=== PATIENT | female | born 1955 | race Caucasian/White ===

== ENCOUNTER 2017-02-08 22:06 | Inpatient (IN) | payer OTHER ==
[2017-02-08] MEDS ORDERED: Acetaminophen 500 MG TAB PO ONE (22:45)
[2017-02-08 23:02] LABS: % BASOPHILS 2.6 % (0.0-2.0); % EOSINOPHILS 0.8 % (0.0-5.0); % LYMPHOCYTES 11.8 % (20.0-50.0); % MONOCYTES 9.7 % (2.0-10.0); % NEUTROPHILS 75.1 % (40.0-80.0); HEMATOCRIT 50.7 % (41.0-60); HEMOGLOBIN 16.9 gm/dL (12-16); MEAN CORPUSCULAR HEMOGLOBIN 30.1 pg (27.0-31.0); MEAN CORPUSCULAR HGB CONC 33.4 pg (28.0-36.0); MEAN PLATELET VOLUME 10.4 fl; NEUTROPHILE ABSOLUTE 10.8 Th/cmm (1.8-8.0); PLATELET COUNT 397 Th/cmm (150-400); RED BLOOD COUNT 5.64 Mil/cmm (3.80-5.10); RED CELL DISTRIBUTION WIDTH 14.9 % (11.5-20.0)
[2017-02-08 23:04] LABS: WHITE BLOOD COUNT 14.4 Th/cmm (4.8-10.8)
[2017-02-08 23:12] LABS: ANION GAP 18.7 (7.0-16.0); BUN/CREATININE RATIO 45.7; CALCIUM SERUM 9.4 mg/dL (8.6-10.3); CREATININE - SERUM 1.4 mg/dL (0.6-1.2); INR 1.14 (0.5-1.4); MAGNESIUM 2.6 mg/dL (1.9-2.7); POTASSIUM SERUM 3.7 mEq/L (3.5-5.1)
[2017-02-08] MEDS ORDERED: Sodium Chloride 0.9% 1,000 ML IV ONE ×2 (23:30)
[2017-02-08] MEDS ORDERED: Sodium Chloride 0.9% 1,000 ML IV SCH (23:30)
[2017-02-08] MEDS ORDERED: Acetaminophen 500 MG TAB ONE (23:34)
--- NOTE | 2017-02-09 00:24 | ED Physician Chart ---
ED Chief Complaint/HPI - Patient Information Date Seen:: 02/09/17 (n) Time Seen:: 00:16 Chief Complaint:: sob History of Present Illness:: palpitation Allergies:: Allergies Allergy/AdvReac Type Severity Reaction Status Date / Time codeine Allergy Verified 02/08/17 22:08 Vitals:: Vital Signs - 8 hr 02/08/17 22:08 Temp 98.5 F HR 120 RR 18 BP 125/77 O2 Sat % 98 Historian:: Patient Family MD/PCP:: negative Family Medical History - Family Member Mother Ethnicity: Non- ED Labs/Radiology/EKG Results - Lab Results Results: Laboratory Tests 02/08/17 02/08/17 02/08/17 22:50 22:50 22:50 WBC 14.4 H RBC 5.64 H Hgb 16.9 Hct 50.7 MCV 90.0 MCH 30.1 MCHC Differential 33.4 RDW 14.9 Plt Count 397 MPV 10.4 Neutrophils % 75.1 Lymphocytes % 11.8 L Monocytes % 9.7 Eosinophils % 0.8 Basophils % 2.6 H PT 12.0 H INR 1.14 Sodium 132 L Potassium 3.7 Chloride 98 Carbon Dioxide 19.0 L Anion Gap 18.7 H BUN 64 H Creatinine 1.4 H Est GFR ( Amer) 49.2 Est GFR (Non-Af Amer) 40.6 BUN/Creatinine Ratio 45.7 Glucose 132 H Whole Bld Lactic Acid Calcium 9.4 Magnesium 2.6 02/08/17 22:50 WBC RBC Hgb Hct MCV MCH MCHC Differential RDW Plt Count MPV Neutrophils % Lymphocytes % Monocytes % Eosinophils % Basophils % PT INR Sodium Potassium Chloride Carbon Dioxide Anion Gap BUN Creatinine Est GFR ( Amer) Est GFR (Non-Af Amer) BUN/Creatinine Ratio Glucose Whole Bld Lactic Acid 4.07 H* Calcium Magnesium ED Septic Shock - <6hrs of presentation: Vital Signs: Vital Signs - 8 hr 02/08/17 22:08 Temp 98.5 F HR 120 RR 18 BP 125/77 O2 Sat % 98
[2017-02-09] MEDS ORDERED: Levofloxacin 500mg/100mL 500 MG/100 ML BAG IV ONE ×2 (00:38→01:05)
[2017-02-09] MEDS ORDERED: Pantoprazole 40 mg EC Tab PO STA (00:41)
[2017-02-09] MEDS ORDERED: Pantoprazole 40 mg EC Tab PO ONE (01:14)
[2017-02-09] MEDS ORDERED: D5-0.45NS 1,000 ML IV SCH (01:38)
[2017-02-09 01:42] LABS: CREATINE KINASE MB 13.4 ng/mL (0.6-6.3)
[2017-02-09 02:51] VITALS: BP 164/76
[2017-02-09] MEDS ORDERED: Ipratropium Neb 0.5 mg/2.5 mL UD IH PRN (07:44)
[2017-02-09] MEDS ORDERED: Albuterol Nebulizer 2.5mg/3mL HHN PRN (07:44)
[2017-02-09] MEDS ORDERED: guaiFENesin 200 MG/10 ML UDC PO PRN (07:44)
--- NOTE | 2017-02-09 08:07 | Diagnostic Imaging Report ---
Portable chest x-ray Time: 320 History: Pneumonia Allowing for portable technique the heart size is normal. No focal pulmonary parenchymal processes. No hilar or mediastinal abnormalities. Impression: No acute abnormalities.
[2017-02-09] MEDS: cefTRIAXone 1 GM in Sodium Chloride 0.9% 50 ML IV SCH (09:40)
[2017-02-09] MEDS: Pantoprazole 40 mg EC Tab PO SCH (09:42)
--- NOTE | 2017-02-09 14:52 | History and Physical ---
History of Present Illness - HPI Chief Complaint: S/P FALL HPI: This is a 61 year old female who is admitted to the ICU unit. According to patient she lives home alone and she was in her mobile home restroom where she fall and could not get up, she states that she was on the floor for about 8 days and the [employer] manager of the mobile home called ambulance. Patient denies any chest pain, fevers, chills. Patient does have multiple decubitus wound on her buttock and perianal area. Upon examination patient is awake, alert, matson catheter in place noted to be dark devon in color. She denies any further medical history, she states that she just has HTN. Patient states that a few years back she was diagnosed with hodgkins lymphoma but her doctors confirmed that she did not have it. Vital Signs: Last Vital Signs Temp 97.8 F 02/09/17 12:00 Pulse 95 02/09/17 14:14 Resp 20 02/09/17 14:14 BP 187/70 02/09/17 14:14 Pulse Ox 98 02/09/17 14:14 Past Medical History Cardiovascular: Report: HTN Pulmonary: Report: No Pertinent Hx PATTERN DEVELOPER: Report: No Pertinent Hx GI: Report: No Pertinent Hx Psych: Report: No Pertinent Hx Musculoskeletal: Report: No Pertinent Hx Rheumatologic: Report: No pertinent Hx Infectious Disease: Report: No Pertinent Hx Renal/: Report: No Pertinent Hx Dermatology: Report: No Pertinent Hx - Past Surgical History Past Surgical History: No pertinent Hx Family Medical History - Family Member Mother History Unknown: Yes (noncontributory) Ethnicity: Non- Living Status: Social History Smoke: No Alcohol: None Drugs: None Lives: Alone Domestic Violence: Negative - Medications Home Medications: Home Medication Medication Instructions Recorded Type Unobtainable [Unobtainable] 02/08/17 History - Allergies Allergies/Adverse Reactions: Allergies Allergy/AdvReac Type Severity Reaction Status Date / Time codeine Allergy Verified 02/08/17 22:08 Review of Systems - Review of Systems Constitutional: Report: Weakness Eyes: Report: No Significant ENT: Report: No Significant Respiratory: Report: No Significant Cardiovascular: Report: No Significant Gastrointestinal: Report: No Significant Genitourinary: Report: No Significant Musculoskeletal: Report: No Significant Skin: Report: Other (multiple decubitus wounds) Neurological: Report: Weakness Physical Exam - Physical Exam HEENT: Report: Ears Nose Throat within normal limits Neck: Report: Within normal limits Cardiovascular Systems: Report: +s1/s2 noted Respiratory: Report: Breath Sounds are within normal limits Abdomen: Report: Non-tender to palpation Back: Report: Sacral Wound is noted with visible discharge. Extremities: Report: Non-tender to palpation. Skin: Report: Color of skin is within normal limits, Warm, Dry Neuro/Psych: Report: Mood affect is within normal limits, A+Ox3 - Lab Results All Lab Results last 24 hours: Laboratory Last Values WBC 14.4 Th/cmm (4.8-10.8) H 02/08/17 22:50 RBC 5.64 Mil/cmm (3.80-5.10) H 02/08/17 22:50 Hgb 16.9 gm/dL (12-16) 02/08/17 22:50 Hct 50.7 % (41.0-60) 02/08/17 22:50 MCV 90.0 fl (81-100) 02/08/17 22:50 MCH 30.1 pg (27.0-31.0) 02/08/17 22:50 MCHC Differential 33.4 pg (28.0-36.0) 02/08/17 22:50 RDW 14.9 % (11.5-20.0) 02/08/17 22:50 Plt Count 397 Th/cmm (150-400) 02/08/17 22:50 MPV 10.4 fl 02/08/17 22:50 Neutrophils % 75.1 % (40.0-80.0) 02/08/17 22:50 Lymphocytes % 11.8 % (20.0-50.0) L 02/08/17 22:50 Monocytes % 9.7 % (2.0-10.0) 02/08/17 22:50 Eosinophils % 0.8 % (0.0-5.0) 02/08/17 22:50 Basophils % 2.6 % (0.0-2.0) H 02/08/17 22:50 PT 12.0 SECONDS (9.5-11.5) H 02/08/17 22:50 INR 1.14 (0.5-1.4) 02/08/17 22:50 Sodium 132 mEq/L (136-145) L 02/08/17 22:50 Potassium 3.7 mEq/L (3.5-5.1) 02/08/17 22:50 Chloride 98 mEq/L (98-107) 02/08/17 22:50 Carbon Dioxide 19.0 mEq/L (21.0-31.0) L 02/08/17 22:50 Anion Gap 18.7 (7.0-16.0) H 02/08/17 22:50 BUN 64 mg/dL (7-25) H 02/08/17 22:50 Creatinine 1.4 mg/dL (0.6-1.2) H 02/08/17 22:50 Est GFR ( Amer) 49.2 ml/min (>90) 02/08/17 22:50 Est GFR (Non-Af Amer) 40.6 ml/min 02/08/17 22:50 BUN/Creatinine Ratio 45.7 02/08/17 22:50 Glucose 132 mg/dL (70-105) H 02/08/17 22:50 Whole Bld Lactic Acid 2.12 mmol/L (0.60-1.99) H* 02/09/17 00:55 Uric Acid 10.9 mg/dL (2.3-6.6) H 02/09/17 04:24 Calcium 9.4 mg/dL (8.6-10.3) 02/08/17 22:50 Magnesium 2.6 mg/dL (1.9-2.7) 02/08/17 22:50 Creatine Kinase 339 U/L (30-223) H 02/08/17 22:50 CK-MB (CK-2) 13.4 ng/mL (0.6-6.3) H 02/08/17 22:50 C-Reactive Protein 6.4 mg/dL (0.0-0.9) H 02/08/17 22:50 Laboratory Results - last 24 hr 02/09/17 04:24 Uric Acid 10.9 H - Assessment Assessment: SEPSIS HTN MULTIPLE DECUBITUS WOUNDS OBESITY LACTIC ACIDOSIS ACUTE RENAL INSUFFICIENCY - Plan Plan: WE NEED TO OBTAIN A URINALYSIS, URINE CULTURE IS SENT OUT ALREADY. CONTINUE IVF FOR HYDRATION NEPHRO/CARDIO CONSULT SPECIALTY FINISHING UTILITY PERSON TO ASSESS PATIENT LIVING CONDITION WOUND CARE IV ANTIBIOTICS WE WILL MONITOR BUN/CREA AND ELECTROLYTE LEVELS LIPID/HGBA1C LEVEL IN AM
[2017-02-09 15:20] LABS: CHOLESTEROL 146 mg/dL (<200); TRIGLYCERIDES 187 mg/dL (<150)
[2017-02-09 17:58] LABS: URINE BILIRUBIN NEGATIVE (NEGATIVE); URINE BLOOD MODERATE (NEGATIVE); URINE GLUCOSE (UA) NEGATIVE (NEGATIVE); URINE KETONE NEGATIVE (NEGATIVE); URINE PROTEIN NEGATIVE (NEGATIVE)
[2017-02-09 18:05] LABS: URINE COLOR YELLOW
[2017-02-09 18:06] LABS: URINE AMORPHOUS SEDIMENT MODERATE URATES (NONE SEEN); URINE BACTERIA 1+ /hpf (NONE SEEN); URINE EPITHELIAL CELLS MODERATE /lpf (FEW); URINE RBC 25-50 /hpf (0-5)
[2017-02-09] MEDS: D5-0.9%NS 1,000 ML IV SCH (21:32)
--- NOTE | 2017-02-10 01:49 | Consultation ---
DATE OF CONSULTATION: 02/09/2017 ATTENDING PHYSICIAN: Ramón Gil M.D. CRIME PREVENTION POLICE OFFICER: Jorje Lam M.D. REASON FOR CONSULTATION: Worsening kidney function, electrolyte imbalance, and fluid management. HISTORY OF PRESENT ILLNESS: This is a 61-year-old female with no past medical history, who was brought in because of sudden weakness of bilateral lower extremities. One week prior to admission, the patient suddenly experienced weakness involving bilateral lower extremities. She lost her strength. She gradually lied down on the floor. She states that she hit her head. There was no loss of consciousness. She has been awake all the time. A few hours prior to admission, a neighbor noted that her mails have not been picked up, hence started to pile up. Paramedics were then notified, and she was found on the floor. She was brought to the Emergency Room. She was in atrial fibrillation upon arrival with heart rate of 117. White count was 14.4 and the lactic acid of 4.7. CO2 of 19. She has no history of kidney failure in the past. She came in now with a BUN/creatinine of 64/1.4. She had no history of diarrhea, nausea and vomiting, headaches, or palpitations. She admitted to being thirsty. CURRENT MEDICATIONS: She is currently on acetaminophen, albuterol, Rocephin, clonidine, Robitussin, ipratropium, Zofran, pantoprazole, vancomycin, and zolpidem. ALLERGIES: ALLERGIC TO CODEINE. SOCIAL HISTORY: Denied any history of alcohol or tobacco use. FAMILY HISTORY: Noncontributory to her present illness. REVIEW OF SYSTEMS: CONSTITUTIONAL: She did complain of weakness involving her lower extremities. She had no fever and no chills. Appetite had been fair. HEENT: No mention of headaches. She did admit of dizziness and lightheadedness. CARDIORESPIRATORY: No shortness of breath, chest pain, palpitations, diaphoresis, nor cough. She arrived at Emergency Room in atrial fibrillation. GASTROINTESTINAL: She had no nausea or vomiting, abdominal pain or cramping, hematemesis, melena, hematochezia, nor diarrhea. ENDOCRINE: No history of diabetes, thyroid abnormalities, nor dyslipidemia. MUSCULOSKELETAL: Denied any arthralgias. GENITOURINARY: No history of kidney failure in the past. Denies any dysuria or hematuria. No retention. NEUROPSYCH: No syncopal episode or seizure activity. PHYSICAL EXAMINATION: GENERAL: The patient is alert, verbal, not in any distress. VITAL SIGNS: Her blood pressure now is 155/72, pulse 106, and temperature is 98 degrees. SKIN: Poor turgor, warm, no rash, no jaundice appreciated. HEENT: Head is normocephalic and atraumatic. Eyes: Extraocular muscles intact. Pupils are equal, round, and reactive to light and accommodate. Anicteric sclerae. Chama conjunctivae. Nose, midline nasal septum. Mouth: Dry mucosa with adequate dentition. NECK: Supple. No adenopathy. No thyromegaly. No bruits. Trachea palpated in the midline. CHEST AND CVS: S1 and S2, but no rub, murmur, nor gallop appreciated. Point of maximal impulse fifth intercostal space, left midclavicular line. No abdominal or femoral bruits appreciated. LUNGS: Equal expansion. No use of accessory muscles. No supraclavicular retractions. Decreased breath sounds, but no rhonchi nor wheezes appreciated. BREASTS: Pendulous, symmetrical, without any discharge. ABDOMEN: Obese, soft, positive for bowel sounds. No bruits either diastolic or systolic. RECTAL: The patient refused. GENITOURINARY: Normal appearing female genitalia with indwelling Fuentes catheter. MUSCULOSKELETAL: No effusions present in her joints with adequate range of motion. EXTREMITIES: No evidence of any edema, cyanosis, nor clubbing with palpable femoral, popliteal, and dorsalis pedis pulses. NEUROLOGIC: The patient is alert, verbal. Motor: Upper extremity 5/5. Lower extremities about 4/5. Sensory are intact. LABORATORY DATA: Revealed white count 14.4, hemoglobin 16.9, hematocrit 50.7, and platelets 397,000, polys 75.1%. Sodium 132, potassium 3.2, chloride 98, bicarbonate 19, BUN 64, creatinine 1.4, and glucose 132. Lactic acid 2.12, uric acid 10.9. CPK 339. CRP 6.4. Chest x-ray showed no acute disease. IMPRESSION: 1. 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 The patient's acute kidney injury is secondary to prerenal azotemia. She was not able to replenish fluid losses, both sensible and insensible because she had been lying on the floor for almost a week. She was able to obtain small amount of fluids as well as snacks. Physical exam revealed poor skin turgor with dry oral mucosa. Her prerenal azotemia eventually progressed to acute tubular injury. She also has overwhelming sepsis. Possibility of a urinary tract infection should be considered and this could lead to development of acute interstitial nephritis. The patient was also found lying on the floor for almost 1 week. CPK was not impressive at only 339. So, we also need to consider the possibility of rhabdomyolysis, but I doubt this because her electrolytes are not suggestive of this. 2. Sudden weakness of bilateral lower extremity, etiology possibly due to sepsis. 3. New onset atrial fibrillation, now in sinus rhythm. 4. Elevated lactic acid, possibility again sepsis is the cause. The patient's blood pressure has always been stable, so I doubt any decrease in circulation. 5. Leukocytosis likely due to sepsis, but possibility of leukemoid reaction should also be considered. 6. Anion gap acidosis based on delta-delta. 7. Hyponatremia due to increased sodium loss as compared to free water loss. PLAN: 1. Follow up with . 2. Urine sodium, eosinophils, and creatinine. 3. Renal ultrasound. 4. Urine myoglobin. 5. Continue with IV hydration. 6. Follow up electrolytes as well as CBC and urinalysis. 7. CT scan of the head as well as lumbosacral spine if the patient does not show any improvement with physical therapy. [facility]# [id number]
[2017-02-10] MEDS: NIFEdipine 30 mg ER Tab PO SCH ×2 (03:22→08:10)
[2017-02-10 05:10] LABS: MEAN CELL VOLUME 90.4 fl (81-100); MEAN CORPUSCULAR HEMOGLOBIN 31.1 pg (27.0-31.0); MEAN CORPUSCULAR HGB CONC 34.4 pg (28.0-36.0); MEAN PLATELET VOLUME 10.2 fl; RED BLOOD COUNT 3.84 Mil/cmm (3.80-5.10); RED CELL DISTRIBUTION WIDTH 15.2 % (11.5-20.0)
[2017-02-10 05:15] LABS: ALKALINE PHOSPHATASE 45 U/L (34-104); ANION GAP 8.7 (7.0-16.0); BILIRUBIN,TOTAL 0.9 mg/dL (0.3-1.0); BUN - UREA NITROGEN 39 mg/dL (7-25); CALCIUM SERUM 7.6 mg/dL (8.6-10.3); CARBON DIOXIDE 20.4 mEq/L (21.0-31.0); CHLORIDE 109 mEq/L (98-107); GLUCOSE 136 mg/dL (70-105); HEMATOCRIT 34.8 % (41.0-60); HEMOGLOBIN 11.9 gm/dL (12-16); PHOSPHOROUS 2.7 mg/dL (2.5-5.0); PLATELET COUNT 236 Th/cmm (150-400); POTASSIUM SERUM 3.1 mEq/L (3.5-5.1); SGOT 24 U/L (13-39); SGPT/ALT 42 U/L (7-52); SODIUM SERUM 135 mEq/L (136-145); WHITE BLOOD COUNT 7.1 Th/cmm (4.8-10.8)
[2017-02-10 05:31] LABS: BNP 70.4 pg/mL (5.0-100.0)
[2017-02-10 05:46] LABS: EOSINOPHIL 3 % (0-5); NEUTROPHILS 48 % (40-80); TOTAL CELLS COUNTED 100
[2017-02-10 05:47] LABS: TSH 3.78 uIU/ml (0.34-5.60)
[2017-02-10] MEDS: D5-0.9%NS 1,000 ML IV SCH (07:25)
[2017-02-10] MEDS: Pantoprazole 40 mg EC Tab PO SCH (08:10)
[2017-02-10] MEDS: cefTRIAXone 1 GM in Sodium Chloride 0.9% 50 ML IV SCH (08:10)
[2017-02-10] MEDS ORDERED: Potassium Chloride 20 mEq ER Tab PO ONE (09:00)
[2017-02-10] MEDS ORDERED: NYSTATIN 100000 UNITS/GM POWD TP SCH (09:00)
--- NOTE | 2017-02-10 09:04 | Diagnostic Imaging Report ---
Portable chest x-ray History: Cough Allowing for portable technique the heart size is normal. No focal pulmonary parenchymal processes. No hilar or mediastinal abnormalities. Impression: No acute abnormalities.
--- NOTE | 2017-02-10 12:01 | Diagnostic Imaging Report ---
Exam: Ultrasound examination deep venous circulation lower extremities. HISTORY: DVT Findings: Real-time ultrasound exam of the lower extremities performed multiple planes utilizing color Doppler technique. The study demonstrates normal compressibility and augmentation of deep venous system throughout. IMPRESSION: No evidence of deep venous thrombosis lower extremities bilaterally.
--- NOTE | 2017-02-10 12:40 | Diagnostic Imaging Report ---
Exam: Renal ultrasound. HISTORY: Acute renal failure. Findings: Real-time ultrasound summation kidneys performed multiple planes. The study demonstrates no evidence of obstructive uropathy or nephrolithiasis. The right kidney measures 11.6 x 5.6 x 5.8 cm. Left kidney measures 11.0 x 6.5 x 6.2 cm. The urinary bladder contains 1.4 cm hypoechoic structure in the most dependent portion of the urinary bladder which might represent debris, neoplastic component cannot be excluded the right visualization of CT examination of the pelvis is recommended. IMPRESSION: No evidence of obstructive uropathy or nephrolithiasis. Hypoechoic 1.47 m structure the base of the urinary bladder floor. Clinical correlation CT examination might be helpful.
[2017-02-10] MEDS ORDERED: D5-0.9%NS 1,000 ML IV SCH (13:23)
--- NOTE | 2017-02-10 13:36 | Internal Medicine Prog Note ---
Internal Medicine Subjective - Subjective Service Date: 02/10/17 Patient seen and examined:: with staff Patient is:: awake Per staff patient has:: tolerating meds Internal Medicine Objective - Results Result Diagrams: 02/10/17 04:30 02/10/17 04:30 Recent Labs: Laboratory Last Values WBC 7.1 Th/cmm (4.8-10.8) D 02/10/17 04:30 RBC 3.84 Mil/cmm (3.80-5.10) 02/10/17 04:30 Hgb 11.9 gm/dL (12-16) L D 02/10/17 04:30 Hct 34.8 % (41.0-60) L D 02/10/17 04:30 MCV 90.4 fl (81-100) 02/10/17 04:30 MCH 31.1 pg (27.0-31.0) H 02/10/17 04:30 MCHC Differential 34.4 pg (28.0-36.0) 02/10/17 04:30 RDW 15.2 % (11.5-20.0) 02/10/17 04:30 Plt Count 236 Th/cmm (150-400) D 02/10/17 04:30 MPV 10.2 fl 02/10/17 04:30 Neutrophils % 75.1 % (40.0-80.0) 02/08/17 22:50 Lymphocytes % 11.8 % (20.0-50.0) L 02/08/17 22:50 Monocytes % 9.7 % (2.0-10.0) 02/08/17 22:50 Eosinophils % 0.8 % (0.0-5.0) 02/08/17 22:50 Basophils % 2.6 % (0.0-2.0) H 02/08/17 22:50 Neutrophils (Manual) 48 % (40-80) 02/10/17 04:30 Lymphocytes 35 % (20-50) 02/10/17 04:30 Monocytes 14 % (2-10) H 02/10/17 04:30 Eosinophils 3 % (0-5) 02/10/17 04:30 Eos Smear Source URINE 02/09/17 16:10 Eos Smear Total Cells NONE SEEN (NONE SEEN) 02/09/17 16:10 PT 12.0 SECONDS (9.5-11.5) H 02/08/17 22:50 INR 1.14 (0.5-1.4) 02/08/17 22:50 Sodium 135 mEq/L (136-145) L 02/10/17 04:30 Potassium 3.1 mEq/L (3.5-5.1) L 02/10/17 04:30 Chloride 109 mEq/L (98-107) H 02/10/17 04:30 Carbon Dioxide 20.4 mEq/L (21.0-31.0) L 02/10/17 04:30 Anion Gap 8.7 (7.0-16.0) 02/10/17 04:30 BUN 39 mg/dL (7-25) H 02/10/17 04:30 Creatinine 1.0 mg/dL (0.6-1.2) 02/10/17 04:30 Est GFR ( Amer) > 60.0 ml/min (>90) 02/10/17 04:30 Est GFR (Non-Af Amer) 59.9 ml/min 02/10/17 04:30 BUN/Creatinine Ratio 39.0 02/10/17 04:30 Glucose 136 mg/dL (70-105) H 02/10/17 04:30 Hemoglobin A1c % 5.3 % (4.0-6.0) 02/10/17 04:30 Whole Bld Lactic Acid 2.12 mmol/L (0.60-1.99) H* 02/09/17 00:55 Uric Acid 10.9 mg/dL (2.3-6.6) H 02/09/17 04:24 Calcium 7.6 mg/dL (8.6-10.3) L 02/10/17 04:30 Phosphorus 2.7 mg/dL (2.5-5.0) 02/10/17 04:30 Magnesium 2.0 mg/dL (1.9-2.7) 02/10/17 04:30 Total Bilirubin 0.9 mg/dL (0.3-1.0) 02/10/17 04:30 AST 24 U/L (13-39) 02/10/17 04:30 ALT 42 U/L (7-52) 02/10/17 04:30 Alkaline Phosphatase 45 U/L (34-104) 02/10/17 04:30 Ammonia 35 umol/L (16-53) 02/10/17 04:30 Creatine Kinase 149 U/L (30-223) 02/10/17 04:30 CK-MB (CK-2) 13.4 ng/mL (0.6-6.3) H 02/08/17 22:50 C-Reactive Protein 6.4 mg/dL (0.0-0.9) H 02/08/17 22:50 B-Natriuretic Peptide 70.4 pg/mL (5.0-100.0) 02/10/17 04:30 Total Protein 4.8 gm/dL (6.0-8.3) L 02/10/17 04:30 Albumin 2.4 gm/dL (3.7-5.3) L 02/10/17 04:30 Globulin 2.4 gm/dL 02/10/17 04:30 Albumin/Globulin Ratio 1.0 (1.0-1.8) 02/10/17 04:30 Triglycerides 187 mg/dL (<150) H 02/09/17 15:02 Cholesterol 146 mg/dL (<200) 02/09/17 15:02 LDL Cholesterol Direct 103 mg/dL (75-193) 02/09/17 15:02 HDL Cholesterol 22 mg/dL (23-92) L 02/09/17 15:02 TSH 3.78 uIU/ml (0.34-5.60) 02/10/17 04:30 Urine Source [place] 02/09/17 16:10 Urine Color YELLOW 02/09/17 16:10 Urine Clarity TURBID (CLEAR) H 02/09/17 16:10 Urine pH 6.0 (4.6 - 8.0) 02/09/17 16:10 Ur Specific [place] 1.010 (1.005-1.030) 02/09/17 16:10 Urine Protein NEGATIVE mg/dL (NEGATIVE) 02/09/17 16:10 Urine Glucose (UA) NEGATIVE mg/dL (NEGATIVE) 02/09/17 16:10 Urine Ketones NEGATIVE mg/dL (NEGATIVE) 02/09/17 16:10 Urine Blood MODERATE (NEGATIVE) H 02/09/17 16:10 Urine Nitrate NEGATIVE (NEGATIVE) 02/09/17 16:10 Urine Bilirubin NEGATIVE (NEGATIVE) 02/09/17 16:10 Urine Urobilinogen 1.0 E.U./dL (0.2 - 1.0) 02/09/17 16:10 Ur Leukocyte Esterase TRACE (NEGATIVE) H 02/09/17 16:10 Urine RBC 25-50 /hpf (0-5) H 02/09/17 16:10 Urine WBC 2-5 /hpf (0-5) 02/09/17 16:10 Ur Epithelial Cells MODERATE /lpf (FEW) 02/09/17 16:10 Amorphous Sediment MODERATE URATES (NONE SEEN) 02/09/17 16:10 Urine Bacteria 1+ /hpf (NONE SEEN) H 02/09/17 16:10 Ur Random Sodium < 10 mmol/L 02/09/17 16:10 Urine Creatinine 74.0 mg/dl (28.0-217.0) 02/09/17 16:10 - Physical Exam Vitals and I&O: Vital Signs Temp 96.3 F 02/10/17 08:00 Pulse 79 02/10/17 11:00 Resp 16 02/10/17 11:00 BP 162/66 02/10/17 11:00 Pulse Ox 98 02/10/17 11:00 Intake & Output 02/09/17 02/10/17 02/10/17 18:59 06:59 18:59 Intake Total 900 1240 50 Output Total 930 1100 Balance -30 140 50 Weight (lbs) 258 lb 258 lb Intake: Intake, IV Amount 300 1000 50 D5-0.9%Ns 1,000 ml @ 125 1000 mls/hr IV .Q8H [facility] Rx#: [id number] Vancomycin HCl 1 gm In 250 Sodium Chloride 0.9% 250 ml @ 166.667 mls/hr IV Q24H [facility] Rx#:[id number] cefTRIAXone 1 gm In 50 50 Sodium Chloride 0.9% 50 ml @ 100 mls/hr IV Q24HR [facility] Rx#:[id number] Oral 600 240 Output: Urine 930 1100 Other: # Bowel Movements 0 Stool Characteristics Soft Active Medications: Current Medications Acetaminophen (Tylenol) 650 mg PO Q4H PRN PRN Reason: Pain Or Fever above 101 Stop: 04/10/17 07:43 Albuterol Sulfate (Albuterol 2.5mg/3ml Neb Ud) 2.5 mg HHN Q2HRT PRN PRN Reason: Shortness of Breath or Wheeze Stop: 04/10/17 07:43 Amlodipine Besylate (Norvasc) 10 mg PO DAILY COUNTS INCLUDE 234 BEDS AT THE [facility] Stop: 04/12/17 08:59 Aspirin (Aspirin Chewable) mg PO DAILY COUNTS INCLUDE 234 BEDS AT THE [facility] Stop: 04/12/17 08:59 Atenolol (Tenormin) mg PO DAILY COUNTS INCLUDE 234 BEDS AT THE [facility] Stop: 04/12/17 08:59 Atorvastatin Calcium (Lipitor) mg PO DAILY SARA PRN Reason: Protocol Stop: 04/12/17 08:59 Gabapentin (Neurontin) mg PO DAILY COUNTS INCLUDE 234 BEDS AT THE [facility] Stop: 04/12/17 08:59 Guaifenesin (Robitussin) 200 mg PO Q4HR PRN PRN Reason: Cough or Congestion Stop: 04/10/17 07:43 Heparin Sodium (Porcine) (Heparin) 5,000 units SUBQ Q12HR COUNTS INCLUDE 234 BEDS AT THE [facility] Stop: 04/10/17 08:59 Last Admin: 02/10/17 08:10 Dose: 5,000 units Ceftriaxone Sodium 1 gm/ (Sodium Chloride) 50 mls @ 100 mls/hr IV Q24HR COUNTS INCLUDE 234 BEDS AT THE [facility] Stop: 04/10/17 07:44 Last Infusion: 02/10/17 08:40 Dose: Infused Vancomycin HCl 1 gm/ Sodium (Chloride) 250 mls @ 166.667 mls/hr IV Q24H COUNTS INCLUDE 234 BEDS AT THE [facility] Stop: 04/10/17 07:44 Last Admin: 02/10/17 09:26 Dose: 166.667 mls/hr Dextrose/Sodium Chloride (D5-0.9%Ns) 1,000 mls @ 80 mls/hr IV .[id number] COUNTS INCLUDE 234 BEDS AT THE [facility] Stop: 04/10/17 07:44 Ipratropium [place] (Atrovent Neb 0.5mg/2.5ml) 0.5 mg IH Q2HRT PRN PRN Reason: Shortness of Breath or Wheeze Stop: 04/10/17 07:43 Losartan Potassium (Cozaar) 100 mg PO DAILY COUNTS INCLUDE 234 BEDS AT THE [facility] Stop: 04/11/17 08:59 Last Admin: 02/10/17 09:26 Dose: 100 mg Nystatin (Nystop) 100 units TP DAILY COUNTS INCLUDE 234 BEDS AT THE [facility] Stop: 04/11/17 08:59 Last Admin: 02/10/17 08:13 Dose: 100 units Ondansetron HCl (Zofran) 4 mg IV Q8H PRN PRN Reason: Nausea / Vomiting Stop: 04/10/17 07:43 Pantoprazole Sodium (Protonix) 40 mg PO DAILY SARA Stop: 04/10/17 08:59 Last Admin: 02/10/17 08:10 Dose: 40 mg Zolpidem Tartrate (Ambien) 5 mg PO HS PRN PRN Reason: Insomnia Stop: 04/10/17 07:43 Internal Medicine Assmt/Plan - Assessment Assessment: SEPSIS ACUTE UTI HTN MULTIPLE DECUBITUS WOUNDS OBESITY LACTIC ACIDOSIS ACUTE RENAL INSUFFICIENCY - Plan Plan: family caseworker arranging transfer to [facility] CONTINUE IVF FOR HYDRATION NEPHRO/CARDIO f/u WOUND CARE CONTINUE IV ANTIBIOTICS continue current plan of care
[2017-02-10] MEDS ORDERED: Probiotic Screen MC PRN (16:56)
[2017-02-10] MEDS ORDERED: Lactobacillus Rhamnosus 10 Billion CFU Capsule PO SCH (17:00)
--- NOTE | 2017-02-10 18:02 | General Progress Note ---
Subjective - Review of Systems Service Date: 02/10/17 Objective - Results Result Diagrams: 02/10/17 04:30 02/10/17 04:30 Recent Labs: Laboratory Last Values WBC 7.1 Th/cmm (4.8-10.8) D 02/10/17 04:30 RBC 3.84 Mil/cmm (3.80-5.10) 02/10/17 04:30 Hgb 11.9 gm/dL (12-16) L D 02/10/17 04:30 Hct 34.8 % (41.0-60) L D 02/10/17 04:30 MCV 90.4 fl (81-100) 02/10/17 04:30 MCH 31.1 pg (27.0-31.0) H 02/10/17 04:30 MCHC Differential 34.4 pg (28.0-36.0) 02/10/17 04:30 RDW 15.2 % (11.5-20.0) 02/10/17 04:30 Plt Count 236 Th/cmm (150-400) D 02/10/17 04:30 MPV 10.2 fl 02/10/17 04:30 Neutrophils % 75.1 % (40.0-80.0) 02/08/17 22:50 Lymphocytes % 11.8 % (20.0-50.0) L 02/08/17 22:50 Monocytes % 9.7 % (2.0-10.0) 02/08/17 22:50 Eosinophils % 0.8 % (0.0-5.0) 02/08/17 22:50 Basophils % 2.6 % (0.0-2.0) H 02/08/17 22:50 Neutrophils (Manual) 48 % (40-80) 02/10/17 04:30 Lymphocytes 35 % (20-50) 02/10/17 04:30 Monocytes 14 % (2-10) H 02/10/17 04:30 Eosinophils 3 % (0-5) 02/10/17 04:30 Eos Smear Source URINE 02/09/17 16:10 Eos Smear Total Cells NONE SEEN (NONE SEEN) 02/09/17 16:10 PT 12.0 SECONDS (9.5-11.5) H 02/08/17 22:50 INR 1.14 (0.5-1.4) 02/08/17 22:50 Sodium 135 mEq/L (136-145) L 02/10/17 04:30 Potassium 3.1 mEq/L (3.5-5.1) L 02/10/17 04:30 Chloride 109 mEq/L (98-107) H 02/10/17 04:30 Carbon Dioxide 20.4 mEq/L (21.0-31.0) L 02/10/17 04:30 Anion Gap 8.7 (7.0-16.0) 02/10/17 04:30 BUN 39 mg/dL (7-25) H 02/10/17 04:30 Creatinine 1.0 mg/dL (0.6-1.2) 02/10/17 04:30 Est GFR ( Amer) > 60.0 ml/min (>90) 02/10/17 04:30 Est GFR (Non-Af Amer) 59.9 ml/min 02/10/17 04:30 BUN/Creatinine Ratio 39.0 02/10/17 04:30 Glucose 136 mg/dL (70-105) H 02/10/17 04:30 Hemoglobin A1c % 5.3 % (4.0-6.0) 02/10/17 04:30 Whole Bld Lactic Acid 2.12 mmol/L (0.60-1.99) H* 02/09/17 00:55 Uric Acid 10.9 mg/dL (2.3-6.6) H 02/09/17 04:24 Calcium 7.6 mg/dL (8.6-10.3) L 02/10/17 04:30 Phosphorus 2.7 mg/dL (2.5-5.0) 02/10/17 04:30 Magnesium 2.0 mg/dL (1.9-2.7) 02/10/17 04:30 Total Bilirubin 0.9 mg/dL (0.3-1.0) 02/10/17 04:30 AST 24 U/L (13-39) 02/10/17 04:30 ALT 42 U/L (7-52) 02/10/17 04:30 Alkaline Phosphatase 45 U/L (34-104) 02/10/17 04:30 Ammonia 35 umol/L (16-53) 02/10/17 04:30 Creatine Kinase 149 U/L (30-223) 02/10/17 04:30 CK-MB (CK-2) 13.4 ng/mL (0.6-6.3) H 02/08/17 22:50 C-Reactive Protein 6.4 mg/dL (0.0-0.9) H 02/08/17 22:50 B-Natriuretic Peptide 70.4 pg/mL (5.0-100.0) 02/10/17 04:30 Total Protein 4.8 gm/dL (6.0-8.3) L 02/10/17 04:30 Albumin 2.4 gm/dL (3.7-5.3) L 02/10/17 04:30 Globulin 2.4 gm/dL 02/10/17 04:30 Albumin/Globulin Ratio 1.0 (1.0-1.8) 02/10/17 04:30 Triglycerides 187 mg/dL (<150) H 02/09/17 15:02 Cholesterol 146 mg/dL (<200) 02/09/17 15:02 LDL Cholesterol Direct 103 mg/dL (75-193) 02/09/17 15:02 HDL Cholesterol 22 mg/dL (23-92) L 02/09/17 15:02 TSH 3.78 uIU/ml (0.34-5.60) 02/10/17 04:30 Urine Source [place] 02/09/17 16:10 Urine Color YELLOW 02/09/17 16:10 Urine Clarity TURBID (CLEAR) H 02/09/17 16:10 Urine pH 6.0 (4.6 - 8.0) 02/09/17 16:10 Ur Specific [place] 1.010 (1.005-1.030) 02/09/17 16:10 Urine Protein NEGATIVE mg/dL (NEGATIVE) 02/09/17 16:10 Urine Glucose (UA) NEGATIVE mg/dL (NEGATIVE) 02/09/17 16:10 Urine Ketones NEGATIVE mg/dL (NEGATIVE) 02/09/17 16:10 Urine Blood MODERATE (NEGATIVE) H 02/09/17 16:10 Urine Nitrate NEGATIVE (NEGATIVE) 02/09/17 16:10 Urine Bilirubin NEGATIVE (NEGATIVE) 02/09/17 16:10 Urine Urobilinogen 1.0 E.U./dL (0.2 - 1.0) 02/09/17 16:10 Ur Leukocyte Esterase TRACE (NEGATIVE) H 02/09/17 16:10 Urine RBC 25-50 /hpf (0-5) H 02/09/17 16:10 Urine WBC 2-5 /hpf (0-5) 02/09/17 16:10 Ur Epithelial Cells MODERATE /lpf (FEW) 02/09/17 16:10 Amorphous Sediment MODERATE URATES (NONE SEEN) 02/09/17 16:10 Urine Bacteria 1+ /hpf (NONE SEEN) H 02/09/17 16:10 Ur Random Sodium < 10 mmol/L 02/09/17 16:10 Urine Creatinine 74.0 mg/dl (28.0-217.0) 02/09/17 16:10 - Physical Exam Vitals and I&O: Vital Signs Temp 96.3 F 02/10/17 08:00 Pulse 88 02/10/17 17:05 Resp 16 02/10/17 12:00 BP 144/63 02/10/17 12:00 Pulse Ox 98 02/10/17 12:00 Intake & Output 02/09/17 02/10/17 02/10/17 18:59 06:59 18:59 Intake Total 900 1240 50 Output Total 930 1100 Balance -30 140 50 Weight (lbs) 117.027 kg 117.027 kg Intake: Intake, IV Amount 300 1000 50 D5-0.9%Ns 1,000 ml @ 125 1000 mls/hr IV .Q8H [facility] Rx#: [id number] Vancomycin HCl 1 gm In 250 Sodium Chloride 0.9% 250 ml @ 166.667 mls/hr IV Q24H [facility] Rx#:[id number] cefTRIAXone 1 gm In 50 50 Sodium Chloride 0.9% 50 ml @ 100 mls/hr IV Q24HR [facility] Rx#:[id number] Oral 600 240 Output: Urine 930 1100 Other: # Bowel Movements 0 Stool Characteristics Soft Active Medications: Current Medications Acetaminophen (Tylenol) 650 mg PO Q4H PRN PRN Reason: Pain Or Fever above 101 Stop: 04/10/17 07:43 Last Admin: 02/10/17 14:52 Dose: 650 mg Albuterol Sulfate (Albuterol 2.5mg/3ml Neb Ud) 2.5 mg HHN Q2HRT PRN PRN Reason: Shortness of Breath or Wheeze Stop: 04/10/17 07:43 Amlodipine Besylate (Norvasc) 10 mg PO DAILY [facility] Stop: 04/12/17 08:59 Aspirin (Aspirin Chewable) 81 mg PO DAILY [facility] Stop: 04/12/17 08:59 Atenolol (Tenormin) 25 mg PO DAILY [facility] Stop: 04/12/17 08:59 Atorvastatin Calcium (Lipitor) 10 mg PO DAILY [facility] PRN Reason: Protocol Stop: 04/12/17 08:59 Gabapentin (Neurontin) 100 mg PO DAILY [facility] Stop: 04/12/17 08:59 Guaifenesin (Robitussin) 200 mg PO Q4HR PRN PRN Reason: Cough or Congestion Stop: 04/10/17 07:43 Heparin Sodium (Porcine) (Heparin) 5,000 units SUBQ Q12HR [facility] Stop: 04/10/17 08:59 Last Admin: 02/10/17 08:10 Dose: 5,000 units Ceftriaxone Sodium 1 gm/ (Sodium Chloride) 50 mls @ 100 mls/hr IV Q24HR [facility] Stop: 04/10/17 07:44 Last Infusion: 02/10/17 08:40 Dose: Infused Vancomycin HCl 1 gm/ Sodium (Chloride) 250 mls @ 166.667 mls/hr IV Q24H [facility] Stop: 04/10/17 07:44 Last Admin: 02/10/17 09:26 Dose: 166.667 mls/hr Dextrose/Sodium Chloride (D5-0.9%Ns) 1,000 mls @ 80 mls/hr IV .[id number] [facility] Stop: 04/10/17 07:44 Last Admin: 02/10/17 17:06 Dose: 80 mls/hr Ipratropium [place] (Atrovent Neb 0.5mg/2.5ml) 0.5 mg IH Q2HRT PRN PRN Reason: Shortness of Breath or Wheeze Stop: 04/10/17 07:43 Lactobacillus Rhamnosus (Culturelle) 1 each PO DAILY [facility] Stop: 04/11/17 16:59 Last Admin: 02/10/17 17:06 Dose: Not Given Losartan Potassium (Cozaar) 100 mg PO DAILY [facility] Stop: 04/11/17 08:59 Last Admin: 02/10/17 09:26 Dose: 100 mg Miscellaneous (Probiotic Screen) 1 ea [facility] PRN PRN PRN Reason: PROTOCOL Stop: 04/11/17 16:55 Nystatin (Nystop) 100 units TP DAILY [facility] Stop: 04/11/17 08:59 Last Admin: 02/10/17 08:13 Dose: 100 units Ondansetron HCl (Zofran) 4 mg IV Q8H PRN PRN Reason: Nausea / Vomiting Stop: 04/10/17 07:43 Pantoprazole Sodium (Protonix) 40 mg PO DAILY [facility] Stop: 04/10/17 08:59 Last Admin: 02/10/17 08:10 Dose: 40 mg Zolpidem Tartrate (Ambien) 5 mg PO HS PRN PRN Reason: Insomnia Stop: 04/10/17 07:43 Assessment/Plan - Plan Plan: unclear why no neuro workup done for this patient will need neurologic evaluation CT of head cause of fall and weakness not able to get up may need to check thyriod function which c may cause proximal muscle weakness causing inability to get up
--- NOTE | 2017-02-10 21:47 | Consultation ---
DATE OF CONSULTATION: 02/09/[address] Gil. HISTORY AND PHYSICAL: This is a 61-year-old morbidly obese female patient who was found on the floor 5 days. Following this, the patient was brought to the Emergency Room. The patient had syncopal episode. No history of PND or orthopnea. PAST MEDICAL HISTORY: Hypertension, obesity, and hyperuricemia. FAMILY HISTORY: Unremarkable. SOCIAL HISTORY: No history of smoking or alcohol abuse. ALLERGIES: None. PHYSICAL EXAMINATION: VITAL SIGNS: Blood pressure 130/80, pulse 70, and respirations 20. HEAD: Normocephalic. No lumps or bumps. EYES: Pupils are equal and reactive to light. Fundi show AV nicking. Sclerae white. Conjunctivae pink. NECK: Carotid 2+. Normal upstroke. JVD flat. Thyroid not palpable. Lymph nodes not palpable. CHEST: Shows increased AP diameter. No kyphosis or scoliosis. LUNGS: Bilateral bronchovesicular breath sounds. Occasional wheeze. No rales. HEART: PMI fifth intercostal space with lateral to midclavicular line. S1, S2. No S3, S4. Systolic murmur, grade 2/6, lower left sternal border without radiation. ABDOMEN: Soft. Liver and spleen not palpable. No organomegaly. Bowel sounds active. NEUROLOGIC: Unremarkable. EXTREMITIES: Peripheral pulses 1+. No pedal edema. The patient had a stage I decubitus ulcer in the sacral area. CLINICAL IMPRESSION: Syncope, hypertension, acute renal failure, sacral decubitus ulcer, morbid obesity, lactic acidosis, and hyperuricemia. PLAN: The patient is to continue present care. Monitor the patient closely. We will get echocardiogram to evaluate left ventricular function. JOB# [id number]
[2017-02-11] MEDS ORDERED: Aspirin 81mg Chewable Tab PO SCH (09:00)
[2017-02-11] MEDS ORDERED: Atorvastatin Calcium 10 MG TAB PO SCH (09:00)
[2017-02-11] MEDS ORDERED: Non-Formulary Item 1 EA (Lisinopril [Lisinopril] 30 MG) PO SCH (09:00)
[2017-02-11 11:21] LABS: FOLIC ACID 2.4 ng/mL (>3.0)
[2017-02-11 12:23] LABS: MICROALBUMIN RANDOM RUINE 19.2
--- NOTE | 2017-02-11 14:39 | ER Physician Documentation ---
DATE OF SERVICE: She is bed #4, 61-year-old female. ALLERGIES: CODEINE GIVING RISE TO SOME TIGHTNESS IN THE THROAT. The history was obtained from the patient. The patient's weight is 117.934 kilograms. Body surface area 2.21. The patient was brought to the Emergency Room by delivery clerk ambulance. The patient has come with one sister and I believe one of the brothers also came here. She lives alone by herself. She is not . She has no children and she is living in one of those mobile homes. The patient's history is that she fell down while on being on the commode about a week ago and since then she has been on the floor. HISTORY OF PRESENT ILLNESS: After the fall, the sales training manager since he did not find her, informed the police department. Paramedics came and brought her over here. The patient is awake and alert and oriented. She has pain in the left hip joint. She was covered with fecal material. According to the nurse, the perianal area was all red and shaved and incontinent of urine and stools. According to her, she was using the toilet during the day and diapers at nighttime. She denies any other significant medical complaint like diabetes mellitus, heart disease. She says she has hypertension with a blood pressure here was at least within normal limits. She denies any other significant medical, surgical history. There is no history of any pheochromocytoma. No history of any urinary tract infection, but the way her urine and the body was smelling suggesting that there may be some infection, also maybe going. Because the whole perianal area almost was covered with fecal material, the clothes, etc. are also covered almost half of her body, mid half was covered with fecal material and urinary and clothes were also dirty. She has no surgical history. She has no children. She has no history of any rheumatic fever, valvular heart disease, COPD, emphysema or bronchitis. She has no cough. She is not taking any medications. PAST MEDICAL HISTORY: Benign and negative. ALLERGIES: CODEINE. Her vital signs were taken by the nurse showing temperature to be 98.5 oral temperature, pulse was 120, blood pressure 125/77, respiratory rate was 18, saturation 98%. Pain scale was labeled as 5. Pain scale used a numeric. The patient's medications that were ordered. Laboratory workup was ordered and a chest x-ray was ordered. PERSONAL HISTORY: Essentially as I mentioned earlier. REVIEW OF SYSTEMS: EYES: No history of any double vision, blurring, blindness. CENTRAL NERVOUS SYSTEM: No history of TIA, stroke, encephalitis, meningitis. PULMONARY: No history of pneumonia or TB, pulmonary embolism, COPD, emphysema, or bronchitis. BONES AND JOINTS: Some aches and pains. No history of any cancer in the bones, etc. No history of any fractures noted. The elbow, even though most painful, was mobile. The patient has slight swelling in the lower extremity, was able to move both lower extremities. She was not made to walk around. ABDOMEN: The patient has some distention, but a vague tenderness in the abdomen. Bowel sounds are present. ENDOCRINE: She does not have any Fuentes catheter in her at the present moment. The nurse was asked to insert a Fuentes catheter. CLINICAL IMPRESSION: The patient has, 1. Incontinence of urine and stool. 2. The patient had a history of fall about 1 week ago. 3. Incapability of the patient to take care of herself. 4. The patient may be having urinary tract infection or any other infection that needs to be taken care. 5. The patient may need a social service evaluation and may need a long-term care, etc., and the family was informed that the patient will have some further workup and treatment to be done. We will call the patient's primary care physician and we will try to admit her and do the needful. Thank you again. The patient's diagnosis by her commitment was hypertension and ALLERGY COMMITMENT WAS TO CODEINE. She is not taking any medications. Her blood pressure first time that was taken was 160/100, then it came to normal. The height was 5 feet 5 inches, weighing 260 pounds. JOB# [id number]
--- NOTE | 2017-02-11 14:39 | ER Physician Documentation ---
DATE OF SERVICE: MEDICAL DECISION MAKING: A 61-year-old female patient. LOCATION: ER. This is an ER followup. The lactic acid of this patient reports that came back as very high at 4.7. It was noted, she probably has sepsis and patient was given vancomycin and Zosyn and I believe I would also add Levaquin as one of the other medication and other things that we got back, the protime is normal 12 with INR of 1.14. Electrolytes showed sodium of 132, potassium of 3.7, chloride 98, CO2 19, glucose of 18.7, BUN is 64, creatinine is 1.4 and GFR is 40.6. BUN and creatinine ratio is 45.7. Magnesium is 2.6. ADDITIONAL DIAGNOSES: The patient has sepsis, most likely the patient will be also going into early stages of septicemia. She has dehydration and prerenal azotemia more diagnoses are being added to the current treatment, that has been added to the ____. I am signing that on the paper. JOB# [id number]
--- NOTE | 2017-02-11 14:43 | ER Physician Documentation ---
DATE OF SERVICE: EKG REPORT The patient has lot of artifact. The EKG was done, 02/08/2017. The biodiesel processing technician tried very hard in obtaining a very good EKG, but there are tremors that the patient has. The EKG shows multiple tremors. There is evidence of left ventricular hypertrophy. The patient has a sinus rhythm. The patient has evidence of left atrial enlargement, evidence suggestive of anteroseptal wall NE of undetermined duration and nonspecific ST-T changes suggestive of ischemia or may be secondary to electrolyte imbalance, drug effect, etc. There is no definite evidence of atrial fibrillation is printed on this chart and one cannot measure the QT interval as well is also printed on the chart. JOB# [id number]
== END 2017-02-10 20:50 | disposition short-term general hospital (02) | DRG 871 ==
LOC: ER 22:06 → ICU 02-09 01:30
PROVIDERS: ADMIT Internal Medicine; ATTEND Internal Medicine
DX: A41.9 Sepsis, unspecified organism (principal); E43 Unspecified severe protein-calorie malnutrition; N17.9 Acute kidney failure, unspecified; L89.159 Pressure ulcer of sacral region, unspecified stage; I11.9 Hypertensive heart disease without heart failure; I48.91 Unspecified atrial fibrillation; N39.0 Urinary tract infection, site not specified; E87.1 Hypo-osmolality and hyponatremia; Z68.41 Body mass index [BMI] 40.0-44.9, adult; W18.30XA Fall on same level, unspecified, initial encounter; R32 Unspecified urinary incontinence; E86.0 Dehydration; L89.309 Pressure ulcer of unspecified buttock, unspecified stage; E66.01 Morbid (severe) obesity due to excess calories; E79.0 Hyperuricemia without signs of inflammatory arthritis and tophaceous disease; R55 Syncope and collapse; M62.81 Muscle weakness (generalized); Y93.89 Activity, other specified; Y92.89 Other specified places as the place of occurrence of the external cause; Y99.8 Other external cause status; Z88.5 Allergy status to narcotic agent
CPT/HCPCS: 36415-UA; 71010-TC; 76770-TC; 80048-TC; 80053-TC; 80061-TC; 81001-TC; 81015-TC; 82043-90; 82140-TC; 82550-TC; 82553; 82570-TC; 82607-90; 82746-90; 83036-90; 83605; 83735-TC; 83874-90; 83880-TC; 83930-90; 84100-TC; 84300-TC; 84443-TC; 84550-TC; 85007-TC; 85025-TC; 85027-TC; 85610-TC; 86141-TC; 87070-90; 87075-90; 87086-90; 87205-90; 93005; 93970-TC-50; 97530; J0696; J1644; J1956; J2543; J3370; J7030; J7042; Z7610